=== PATIENT | female | born 1965 | race African-American/Black ===

== ENCOUNTER 2020-08-24 13:25 | Emergency (ER) | payer OTHER, SELFPAY ==
--- NOTE | 2020-08-24 13:27 | PC.NURSE ---
Young children with patient, ED transmitter engineer in charge spoke with patient and notified the patient of hospital policy. Patient left the ED at this time.
== END 2020-08-24 13:27 | disposition left against medical advice (07) ==
PROVIDERS: PCP Internal Medicine Infectious Disease
DX: Z53.21 Procedure and treatment not carried out due to patient leaving prior to being seen by health care provider (principal)
CPT/HCPCS: 99199

== ENCOUNTER 2021-01-19 15:01 | Emergency (ER) | payer OTHER, SELFPAY ==
[2021-01-19 15:05] VITALS: BP 162/88; PULSE 82; RESP 18; TEMP 36.2; O2SAT 99
--- NOTE | 2021-01-19 15:45 | PC.NURSE ---
pt came to the intake desk and stated she wanted to leave and wants to try to get in with her DrMarshall
== END 2021-01-19 15:45 | disposition left against medical advice (07) ==
PROVIDERS: PCP Internal Medicine Infectious Disease
DX: Z53.21 Procedure and treatment not carried out due to patient leaving prior to being seen by health care provider (principal)
CPT/HCPCS: 99199

== ENCOUNTER 2021-02-15 12:58 | Emergency (ER) | payer OTHER, SELFPAY ==
--- NOTE | ~2021-02-15 | XR_ITS ---
XR forearm RT 2V DATE: 02/15/2021 13:29 INDICATION: Fell yesterday on arm. Pain. TECHNIQUE: AP and lateral views COMPARISON: None FINDINGS: No fracture or dislocation of the right radius or ulna. Normal alignment at the elbow and w rist joints. No periosteal reaction or bone destruction. IMPRESSION: Negative Reviewed, dictated and finalized at location A. IMPRESSION: Negative
--- NOTE | 2021-02-15 13:16 | PC.NURSE ---
CALLED TO TRIAGE, NO RESPONSE
[2021-02-15 13:29] VITALS: BP 156/92; PULSE 95; RESP 20; TEMP 36.4; O2SAT 98
[2021-02-15 14:41] VITALS: BP 156/87; PULSE 87; RESP 20; O2SAT 97
--- NOTE | 2021-02-15 15:11 | ED.UPPEXIN ---
HPI - Extremity Injury (Upper) General Chief Complaint: Extremity Injury, Upper Stated Complaint: fell- r arm pain Time Seen by Provider: 02/15/21 14:51 Source: patient Mode of arrival: ambulatory Limitations: no limitations History of Present Illness HPI narrative: 55-year-old female Yesterday evening she stumbled and fell and on the way down banged her right forearm and then landed on top of it Today she has bruising and tenderness on the medial flexor side of the forearm There is no limitation of range of motion at the elbow or wrist, no numbness, no weakness, no pain with wrist or finger flexion or extension Related Data Allergies Allergy/AdvReac Type Severity Reaction Status Date / Time No Known Allergies Allergy Verified 02/15/21 13:00 Review of Systems Musculoskeletal: Musculoskeletal: Reports arthralgias and Reports joint swelling Neurologic: Denies focal weakness, Denies numbness and Denies weakness PMF Social History Social History Gender identity (if verbalized by the patient): Female Exam Const: General: cooperative, no acute distress and alert Orientation/consciousness: patient oriented x3 (alert) HENMT: Head: normal to inspection, normocephalic and atraumatic Ears: external ears normal General nose exam: no epistaxis Eyes: Conjunctivae: conjunctivae normal EOM: EOMs intact bilaterally Neck: Neck: supple and no JVD Resp: Effort & Inspection: normal respiratory effort and not labored Auscultation: other (BS =) Skin: General skin exam: normal color and no rashes or lesions noted Neuro: General: patient oriented x3 (alert) Speech: normal speech Extrem: Other: She has a fairly large bruise over the proximal right forearm medially Elbow range of motion is normal and pain-free, wrist flexion and extension is normal and pain-free. Pulses and cap refill are normal as well Psych: Affect: normal affect Course Vital Signs Vital signs: Vital Signs Temperature 36.4 C 02/15/21 13:29 Pulse Rate 95 02/15/21 13:29 Respiratory Rate 20 02/15/21 13:29 Blood Pressure 156/92 H 02/15/21 13:29 Pulse Oximetry 98 02/15/21 13:29 Temperature 36.4 C 02/15/21 13:29 Pulse Rate 87 02/15/21 14:41 Respiratory Rate 20 02/15/21 14:41 Blood Pressure 156/87 H 02/15/21 14:41 Pulse Oximetry 97 02/15/21 14:41 MDM - Extremity Injury (Upper) Imaging Data Radiologist's impression: ITS Impressions Forearm X-Ray 02/15/21 13:42 IMPRESSION: Negative Discharge Plan Discharge Clinical Impression: Contusion of forearm, right Patient Disposition: Home, Self-Care Condition: Stable Instructions: Contusion in Adults (ED) Additional Instructions: tylenol as needed Follow-up/Referrals: Todd,Kanchan Kelly [Primary Care Provider] - (if needed)
[2021-02-15 15:40] VITALS: BP 142/78; PULSE 82; RESP 18; O2SAT 99
== END 2021-02-15 15:42 | disposition home or self-care (01) ==
PROVIDERS: Emergency Provider Emergency Medicine; PCP Internal Medicine Infectious Disease
DX: S00.83XA Contusion of other part of head, initial encounter (principal); W01.0XXA Fall on same level from slipping, tripping and stumbling without subsequent striking against object, initial encounter
CPT/HCPCS: 73090; 99283

== ENCOUNTER 2021-07-24 00:25 | Emergency (ER) | payer OTHER, SELFPAY ==
--- NOTE | ~2021-07-24 | XR_ITS ---
EXAMINATION: XR hand LT min 3V DATE: 07/24/2021 01:00 INDICATION: Left thumb pain. TECHNIQUE: 3 views of left hand were obtained. COMPARISON: Left wrist radiographs 12/08/2017 FINDINGS: Bone alignment is normal. No acute fracture. There is a calcification volar to base of fift h middle phalanx. There is moderate osteoarthritis of first carpometacarpal joint and mild osteoarthr itis of third and fifth distal interphalangeal joints. IMPRESSION: 1. Polyarticular osteoarthritis. Reviewed, dictated and finalized at location A.
[2021-07-24 00:26] VITALS: BP 157/94; PULSE 80; RESP 17; TEMP 36.1; O2SAT 95
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
[2021-07-24] MEDS: IBUPROFEN 400 MG TABLET 800 MG PO (01:11)
[2021-07-24] MEDS: HYDROcodone/acetaminophen (*CRX) 5-325 MG TABLET 1 TAB PO (01:12)
[2021-07-24 02:07] VITALS: BP 153/89; PULSE 79; RESP 20; O2SAT 98
== END 2021-07-24 02:09 | disposition home or self-care (01) ==
LOC: ANHED 00:55
PROVIDERS: Emergency Provider Emergency Medicine
DX: S63.602A Unspecified sprain of left thumb, initial encounter (principal); I10 Essential (primary) hypertension; E78.00 Pure hypercholesterolemia, unspecified; J45.909 Unspecified asthma, uncomplicated; X50.9XXA Other and unspecified overexertion or strenuous movements or postures, initial encounter
CPT/HCPCS: 73130; 99283; A9270

== ENCOUNTER 2022-03-28 14:47 | Emergency (ER) | payer OTHER, SELFPAY ==
[2022-03-28 15:07] VITALS: BP 149/105; PULSE 107; RESP 14; TEMP 36.6; O2SAT 96
--- NOTE | 2022-03-28 16:01 | ED.UPPEXIN ---
HPI - Extremity Injury (Upper) General Chief Complaint: Extremity Injury, Upper Stated Complaint: Increasing chronic L thumb pain Time Seen by Provider: 03/28/22 15:30 Source: patient Mode of arrival: ambulatory Limitations: no limitations History of Present Illness HPI narrative: Patient is 56 years old -[place] female presents with pain at the base of left thumb and the area around it started 2 to 3 weeks ago. Shooting pain, worse with certain movement especially when she tries to make a fist. Patient denies any trauma. Patient had history of surgery at that finger years ago, does not remember the name of the surgeon, did not see anybody in the last 2 to 3 weeks because she was busy at work. She denies any fever, chills, nausea, vomiting. Related Data Allergies Allergy/AdvReac Type Severity Reaction Status Date / Time No Known Allergies Allergy Verified 03/28/22 15:39 Review of Systems Review of Systems: All systems reviewed & are unremarkable except as noted in HPI and below PMFSH Social History Social History Gender identity (if verbalized by the patient): Female Exam Narrative: General appearance: Well-developed, well-nourished Skin: Normal color Head: Normocephalic, nontraumatic Eyes: Clear conjunctiva ENT: Oropharynx normal, ears normal, nose normal Neck: Supple, nontender Chest and respiratory: Airway patent, no respiratory distress, no accessory muscle use Heart: Regular rate/rhythm Abdomen: Soft, nontender, no organomegaly, quiet bowel sounds Vascular: Normal peripheral pulses, normal capillary refill. Musculoskeletal: Left hand, left thumb examination showed no swelling, no bruises, no deformity, no warmth or cold. Slight limited range of motion mainly to make a fist. Neurologic: Alert and oriented ?3, CLINIC ASSISTANT is normal as tested, no gross motor deficit Course Course Emergency Course: De Quervain's tenosynovitis is my concern Vital Signs Vital signs: Vital Signs Temperature 36.6 C 03/28/22 15:07 Pulse Rate 107 H 03/28/22 15:07 Respiratory Rate 14 03/28/22 15:07 Blood Pressure 149/105 H 03/28/22 15:07 Pulse Oximetry 96 03/28/22 15:07 Temperature 36.6 C 03/28/22 15:07 Pulse Rate 107 H 03/28/22 15:07 Respiratory Rate 14 03/28/22 15:07 Blood Pressure 149/105 H 03/28/22 15:07 Pulse Oximetry 96 03/28/22 15:07 Critical Care Time Critical Care Time Critical Care Time: No Discharge Plan Discharge Clinical Impression: De Quervain's disease (tenosynovitis) Patient Disposition: Home, Self-Care Condition: Stable Instructions: Antibiotic Form, De Quervain Disease (ED) Additional Instructions: Call Dr. Valdes for appointment, keep hand elevated, splint for immobilization Prescriptions: New naproxen [Naprosyn] 500 mg tablet 500 mg PO BID PRN (Reason: pain) Qty: 14 RF: 0 tramadol 50 mg tablet 50 mg PO Q4H PRN (Reason: pain) Qty: 20 RF: 0 No Action ibuprofen 800 mg tablet 800 mg PO TID PRN (Reason: pain) Qty: 30 RF: 0 Follow-up/Referrals: Jeevan Valdes MD [Physician] - 03/29/22 PHYSICIAN NOT ON STAFF,NONSTAFF [Primary Care Provider] -
== END 2022-03-28 16:28 | disposition home or self-care (01) ==
PROVIDERS: Emergency Provider Emergency Medicine
DX: M65.4 Radial styloid tenosynovitis [de Quervain] (principal)
CPT/HCPCS: 99283

== ENCOUNTER 2022-06-23 18:51 | Emergency (ER) | payer OTHER, SELFPAY ==
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
[2022-06-23 19:05] VITALS: PULSE 78; RESP 16; TEMP 36.3; O2SAT 100
[2022-06-23 19:09] VITALS: O2SAT 100
[2022-06-23 19:46] VITALS: O2SAT 100
[2022-06-23 20:13] VITALS: O2SAT 100
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
--- NOTE | 2022-06-23 20:44 | ECG_ITS ---
Measurements Intervals [place] Rate: 65 P: 50 [place]: 163 QRS: 49 QRSD: 84 T: 29 QT: 387 QTc: 402 Interpretive Statements SINUS RHYTHM POSSIBLE LEFT ATRIAL ENLARGEMENT [-0.1mV P WAVE IN V1/V2] NONSPECIFIC T-WAVE ABNORMALITY NO PREVIOUS ECG AVAILABLE FOR COMPARISON Electronically Signed On 06-24-2022 18:12:26 CDT by Izzy Stevens M.D.
[2022-06-23] MEDS: ONDANSETRON HCL ODT 4 MG TABLET PO (21:26)
[2022-06-23 21:43] VITALS: BP 159/100; PULSE 76; RESP 18; O2SAT 99
== END 2022-06-23 21:44 | disposition home or self-care (01) ==
PROVIDERS: Emergency Provider Emergency Medicine
DX: T59.811A Toxic effect of smoke, accidental (unintentional), initial encounter (principal); Y92.63 Factory as the place of occurrence of the external cause
CPT/HCPCS: 71046; 93005; 99283; A9270

== ENCOUNTER 2023-10-01 12:28 | Emergency (ER) | payer OTHER, SELFPAY ==
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
[2023-10-01 12:35] VITALS: BP 150/101; PULSE 91; RESP 18; TEMP 36.1; O2SAT 100
[2023-10-01] MEDS: CYCLOBENZAPRINE HCL 10 MG TABLET PO (14:35)
[2023-10-01] MEDS: KETOROLAC 30 MG/ML VIAL (*BKC) IM (14:35)
[2023-10-01] MEDS: HYDROcodone/acetaminophen (*CRX) 5-325 MG TABLET 1 TAB PO (14:36)
--- NOTE | 2023-10-01 15:11 | ED.GENADULT ---
HPI - General Adult General Chief complaint: Extremity Injury, Lower Stated complaint: left leg swelling/brusing Time Seen by Provider: 10/01/23 14:04 History of Present Illness HPI narrative: Cici Virgen is a 58 y/o female who presents with reports of trying to get in to her bed using her footstool and it somehow slipped and she went back down on her left foot /ankle and then the stool hit her in the leg. This happened about 5 days ago and reports of having continued pain to her left ankle/ and left lower leg area. pain is worse with bearing weight and palpation Related Data Allergies Allergy/AdvReac Type Severity Reaction Status Date / Time No Known Allergies Allergy Verified 10/01/23 13:57 Review of Systems Review of Systems: CONSTITUTIONAL: Denies fever, chills, or sweats. EYES: Denies visual changes, redness, or discharge. ENT: Denies rhinorrhea, congestion, sore throat, or otalgia. CARDIOVASCULAR: Denies chest pain, palpitations, or edema. RESPIRATORY: Denies cough or dyspnea. GASTROINTESTINAL: Denies abdominal pain, nausea, vomiting, or diarrhea. GENITOURINARY: Denies dysuria or hematuria. SKIN: Denies rash or itching. MUSCULOSKELETAL: Complains of pain to her left lower leg/ ankle after injury 5 days ago NEUROLOGIC: Denies headache, numbness, dizziness, or weakness. PSYCHIATRIC: Denies anxiety or depression. [facility] Past Medical History Medical History GERD (gastroesophageal reflux disease) HLD (hyperlipidemia) HTN (hypertension) Surgical History Surgical History History of section History of ovarian cystectomy History of surgery on right wrist Social History Social History Smoking status: Never smoker Gender identity (if verbalized by the patient): Female Course Vital Signs Vital signs: Vital Signs Temperature 36.1 C L 10/01/23 12:35 Pulse Rate 91 10/01/23 12:35 Respiratory Rate 18 10/01/23 12:35 Blood Pressure 150/101 H 10/01/23 12:35 Pulse Oximetry 100 10/01/23 12:35 Oxygen Delivery Room Air 10/01/23 12:35 Temperature 36.1 C L 10/01/23 12:35 Pulse Rate 91 10/01/23 12:35 Respiratory Rate 18 10/01/23 12:35 Blood Pressure 150/101 H 10/01/23 12:35 Pulse Oximetry 100 10/01/23 12:35 Oxygen Delivery Room Air 10/01/23 12:35 Medical Decision Making MDM Narrative Medical decision making narrative: On exam pt is noted to have some bruising to her left lower leg/ left ankle distal pulses present Pain noted to the medial aspect of the left ankle and the medial tib/fib area ROM intact x ray is negative for acute fracture/ will treat as ankle sprain/ leg contusion phuc wrap / crutches/ Naproxen BID / Flexeril TID PRN Close follow up with PCP Strict return precautions provided Discussed d/c plan with pt and she is requesting a walking boot instead of an phuc wrap We do not have walking boots for patients but I was able to send a script to her pharmacy for one. Medical Records Medical records reviewed: Yes I reviewed the external patient's medical records. Vital Signs Vital Signs: Vital Signs Temperature 36.1 C L 10/01/23 12:35 Pulse Rate 91 10/01/23 12:35 Respiratory Rate 18 10/01/23 12:35 Blood Pressure 150/101 H 10/01/23 12:35 Pulse Oximetry 100 10/01/23 12:35 Oxygen Delivery Room Air 10/01/23 12:35 Temperature 36.1 C L 10/01/23 12:35 Pulse Rate 91 10/01/23 12:35 Respiratory Rate 18 10/01/23 12:35 Blood Pressure 150/101 H 10/01/23 12:35 Pulse Oximetry 100 10/01/23 12:35 Oxygen Delivery Room Air 10/01/23 12:35 Vitals reviewed by me. Imaging Data My impression: Impressions Ankle X-Ray 10/01/23 14:33 IMPRESSION: No acute osseous finding in the left tibia/fibula or left ankle. Tibia/Fibula X-Ray 10/01/23
== END 2023-10-01 16:25 | disposition home or self-care (01) ==
PROVIDERS: Emergency Provider Nurse Practitioner Family
DX: S93.402A Sprain of unspecified ligament of left ankle, initial encounter (principal); S80.12XA Contusion of left lower leg, initial encounter; E78.5 Hyperlipidemia, unspecified; I10 Essential (primary) hypertension; K21.9 Gastro-esophageal reflux disease without esophagitis; W17.89XA Other fall from one level to another, initial encounter
CPT/HCPCS: 73590; 73610; 96372; 99283; A9270; J1885

== ENCOUNTER 2024-10-10 13:32 | Emergency (ER) | payer OTHER, SELFPAY ==
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
[2024-10-10 13:37] VITALS: BP 152/95; PULSE 97; RESP 20; TEMP 36.5; O2SAT 99
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
[2024-10-10] MEDS: HYDROcodone/acetaminophen (*CRX) 5-325 MG TABLET 1 TAB PO (15:37)
[2024-10-10 16:24] VITALS: BP 137/82; PULSE 72; RESP 18; TEMP 36.3; O2SAT 100
== END 2024-10-10 16:29 | disposition home or self-care (01) ==
PROVIDERS: Emergency Provider Physician Assistant
DX: S13.4XXA Sprain of ligaments of cervical spine, initial encounter (principal); I10 Essential (primary) hypertension; E78.5 Hyperlipidemia, unspecified; K21.9 Gastro-esophageal reflux disease without esophagitis; M19.012 Primary osteoarthritis, left shoulder; M19.011 Primary osteoarthritis, right shoulder; M47.812 Spondylosis without myelopathy or radiculopathy, cervical region; M47.816 Spondylosis without myelopathy or radiculopathy, lumbar region; M16.0 Bilateral primary osteoarthritis of hip; M46.1 Sacroiliitis, not elsewhere classified; V49.40XA Driver injured in collision with unspecified motor vehicles in traffic accident, initial encounter
CPT/HCPCS: 70450; 72040; 72100; 73030; 99284; A9270